=== PATIENT | female | born 1970 | race Caucasian/White ===

== ENCOUNTER 2019-02-12 05:57 | Observation (INO) ==
--- NOTE | 2019-01-25 09:39 | Anesthesiology Consultation ---
Date of Service January 25, 2019 Assessment & Plan (1) Encounter for pre-operative examination: Chart Review Chart Review: Acceptable Risk for Surgery and Patient NOT seen in Pre Admission Testing History Surgery Operation Date: 02/12/19 07:30 Proposed Procedures p C5-C6, C6-C7 Anterior Cervical Discectomy and Fusion with Iliac Crest Bone Graft - Adalberto Kim DO Height/Weight Height: 5 ft Weight: 63.503 kg Allergies Allergy/AdvReac Type Severity Reaction Status Date / Time erythromycin base Allergy Verified 01/18/19 15:56 Medications Home Medications Medication Instructions Recorded Confirmed Last Taken gabapentin 300 mg capsule 300 mg PO TID cap 12/20/18 01/18/19 Unknown lansoprazole 30 mg delayed 30 mg PO QPM 12/20/18 01/18/19 Unknown release,disintegrating tablet lorazepam 0.5 mg tablet 0.5 mg PO DAILY PRN 12/20/18 01/18/19 Unknown melatonin 3 mg tablet 3 mg PO HS PRN 12/20/18 01/18/19 Unknown meloxicam 15 mg tablet 15 mg PO QPM 12/20/18 01/18/19 Unknown sertraline 100 mg tablet 100 mg PO QPM 12/20/18 01/18/19 Unknown Past Medical History Medical History GERD (gastroesophageal reflux disease) Anxiety Benign tumor of endometrium H/O Degenerative disc disease Lupus MANAGED BY PCP Migraine Past Surgical History Surgical History History of cardiac cath 2015 (2/2 CHEST PAIN)= "ANGIOGRAPHICALLY NORMAL CORONARY ARTERIES" History of colonoscopy History of esophagogastroduodenoscopy (EGD) History of partial hysterectomy Intussusception SURGICALLY REPAIRED AN INFANT STOP BANG Total 1 Social History Smoking Status: Never smoker Do You Dip or Chew Tobacco: No Hx Alcohol Use: No Hx Substance Use: No substance use type: does not use Testing Cardiac Catheterization Date: 12/16/15 angiographically normal coronary arteries. LVEF 55%. Laboratory Results 01/24/19 WBC 7.06 H/H 15.7/46.2 PLATELETS 243
--- NOTE | 2019-02-09 15:13 | History and Physical Report ---
DATE OF ADMISSION: 02/12/2019 CHIEF COMPLAINT: Neck pain, arm pain, trapezius pain. HISTORY OF PRESENT ILLNESS: She has 2-level disc pathology cervical spine. PAST MEDICAL HISTORY: Positive for lupus. No hypertension, COPD, carcinoma. PAST SURGICAL HISTORY: Hysterectomy, heart catheterization. ALLERGIES: Negative. FAMILY HISTORY: Lupus, diabetes, heart disease. SOCIAL HISTORY: She is single. No alcohol, no tobacco. Active lifestyle. REVIEW OF SYSTEMS: Twelve-system review is negative for fevers, sweats, chills. Ear, nose and throat negative. Denies chest pain, heart palpitations. Denies asthma, wheezing, shortness of breath. She has musculoskeletal neck pain, arm pain as well. MEDICATIONS: Meloxicam, lorazepam, melatonin, lisinopril. PHYSICAL EXAMINATION: GENERAL: She is 5 feet, 145, in no terrible distress. VITAL SIGNS: Blood pressure 130/80, pulse 80, afebrile. CARDIAC: Normal S1, S2, no S3. LUNGS: Clear to auscultation. No rales, rhonchi, wheezing. ABDOMEN: Soft, nontender. 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 She has a Spurling maneuver and Lhermitte sign. No upper motor neuron pathology. Images reviewed in detail. She has 2-level cervical disc pathology, C5-C7 cervical spine. PLAN: Includes an ACDF, cervical spine, C5-C7 cervical spine with iliac crest bone graft. MTDD
[2019-02-12] MEDS ORDERED: SODIUM CHLORIDE 0.9% 1000ML IV SCH (06:00)
[2019-02-12] MEDS ORDERED: LR 15ML/HR IV SCH (06:00)
[2019-02-12] MEDS ORDERED: CEFAZOLIN 2000MG 2,000 MG/15 ML SYR IV SCH (06:00)
[2019-02-12] MEDS ORDERED: LR 60ML/HR IV SCH (06:00)
[2019-02-12] MEDS ORDERED: BUPIVACAINE/EPINEPHRINE 0.5% MPF 1:200,000 30 ML VIAL ONE (07:01)
[2019-02-12] MEDS ORDERED: THROMBIN FOR SOLN 20000 UNIT KIT ONE ×2 (07:01→07:02)
[2019-02-12] MEDS ORDERED: GELATIN SPONGE SZ 100 ONE (07:01)
[2019-02-12] MEDS ORDERED: BACITRACIN INJ 50,000 UNIT VIAL ONE (07:01)
[2019-02-12] MEDS ORDERED: fentaNYL citrate 100 MCG/2 ML VIAL ONE (07:05)
[2019-02-12] MEDS ORDERED: MIDAZOLAM HCL 1 MG/ML 2ML VIAL ONE (07:05)
--- NOTE | 2019-02-12 07:11 | History & Physical Bridge Note ---
Date of Service February 12, 2019 History & Physical Bridge Note I have examined the patient, reviewed the History & Physical and in the interval since the performance of the History & Physical I have noted the following changes of clinical significance: no changes noted
[2019-02-12] MEDS ORDERED: ATROPINE SULFATE 0.1 MG/ML 10ML SYR IV PRN (07:14)
[2019-02-12] MEDS ORDERED: ONDANSETRON INJ 2 MG/ML 2 ML VIAL IV PRN ×2 (07:14→11:38)
[2019-02-12] MEDS ORDERED: ePHEDrine sulfate 50 MG/ML AMP IV PRN (07:14)
[2019-02-12] MEDS ORDERED: SCOPOLAMINE 1.5 MG TDSY ONE (07:15)
[2019-02-12] MEDS ORDERED: ROCURONIUM BROMIDE 10 MG/ML 5 ML VIAL ONE (07:55)
[2019-02-12] MEDS ORDERED: LARYING-O-JET KIT (LTA) ONE (07:55)
[2019-02-12] MEDS ORDERED: LIDOCAINE HCL 2% 2 ML VIAL/AMP(20MG/ML) INFIL ONE (07:55)
[2019-02-12] MEDS ORDERED: ONDANSETRON INJ 2 MG/ML 2 ML VIAL ONE (07:55)
[2019-02-12] MEDS ORDERED: NEOSTIGMINE METHYLSULFATE 5 MG/5 ML SYR ONE (07:55)
[2019-02-12] MEDS ORDERED: GLYCOPYRROLATE 0.2 MG/ML VIAL ONE (07:55)
[2019-02-12] MEDS ORDERED: PROPOFOL IV EMULSION 10 MG/ML 20 ML VIAL IV ONE (07:55)
[2019-02-12] MEDS ORDERED: DEXAMETHASONE SOD INJ 4 MG/ML VIAL ONE (07:55)
[2019-02-12] MEDS ORDERED: HYDROmorphone INJ 2 MG/ML SYR/VIAL ONE (07:56)
--- NOTE | 2019-02-12 09:25 | Fluoroscopy Report ---
FL spine 1V any level CLINICAL HISTORY: 48 years-old Female presenting with C5-C7 ACDF. TECHNIQUE: 1 fluoroscopic image(s) recorded as part of an intraoperative procedure. COMPARISON: None. FINDINGS/IMPRESSION: Anterior cervical discectomy and fusion in the cervical spine poorly evaluated due to overpenetration of the upper cervical region and underpenetration of the lower cervical region. Grossly normal anato viry alignment. Please see surgical report for further details. Fluoroscopy dosage (mGy): 0.52. Fluoroscopy time: 2.8 seconds. Number or time of high level fluoroscopy (HLF), digital spot, or digital subtraction images: 0. Electronically signed by: Germain Pathak M.D. 02/12/2019 9:24 AM
--- NOTE | 2019-02-12 09:37 | Post Operative Brief Note ---
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
[2019-02-12] MEDS: fentaNYL citrate 100 MCG/2 ML VIAL IV PRN ×4 (10:01→10:30)
[2019-02-12] MEDS: HYDROmorphone INJ 1 MG/ML SYRINGE IV PRN ×4 (10:36→11:01)
--- NOTE | 2019-02-12 11:00 | Anesthesiology Progress Note ---
Date of Service February 12, 2019 Anesthesia Post Procedure Vital Signs Vital Signs: Temp Pulse Pulse Resp BP Pulse Ox 02/12/19 10:45 106 H 15 105/73 96 02/12/19 10:35 94 H 14 109/71 97 02/12/19 10:25 99 H 15 101/86 97 02/12/19 10:15 101 H 14 130/84 97 02/12/19 10:05 100 H 16 127/78 97 02/12/19 09:55 95 H 15 132/87 97 02/12/19 09:45 100 H 15 127/87 100 02/12/19 09:36 36.0 C L 103 H 17 140/91 100 02/12/19 06:29 36.7 C 103 H 18 127/86 97 Pain Intensity Posterior Neck: Pain Intensity: 5 Transfer of Care Handoff Completed per policy Notes Mental Status: alert / awake / arousable and participated in evaluation Patient Amnestic to Procedure: Yes Nausea / Vomiting: adequately controlled Pain: adequately controlled Airway Patency, RR, SpO2: stable & adequate BP & HR: stable & adequate Hydration State: stable & adequate Anesthetic Complications: no major complications apparent and Pt Satisfied with anesthetic care
[2019-02-12] MEDS ORDERED: ACETAMINOPHEN 1,000 MG/100 ML VIAL IV PRN (11:38)
[2019-02-12] MEDS ORDERED: NALOXONE HCL 0.4 MG/1 ML VIAL/CARP IV PRN (11:38)
[2019-02-12] MEDS ORDERED: RACEPINEPHRINE 2.25% NEBU SOLN 0.5 ML VIAL INH PRN (11:38)
[2019-02-12] MEDS ORDERED: DEXAMETHASONE SOD PHOSPHATE 8 MG in SYRINGE 0 ML IV PRN (11:38)
[2019-02-12] MEDS: LORazepam 0.5 MG/1 ML VIAL IV PRN ×2 (12:35→21:05)
--- NOTE | 2019-02-12 13:04 | Operative Report ---
DATE OF OPERATION: 02/12/2019 PREOPERATIVE DIAGNOSES: Spinal cord compression, spondylosis of cervical spine, C5-C6 and C6-C7 cervical spine. POSTOPERATIVE DIAGNOSES: Spinal cord compression, spondylosis of cervical spine, C5-C6 and C6-C7 cervical spine. PROCEDURE: Anterior cervical discectomy and fusion C5-C6 and C6-C7, iliac crest bone graft, anterior plating. PROCEDURE DESCRIPTION: The patient was taken to the operating room, general intubated anesthetic provided to the patient. Prior to the patient bringing back to the operating room, we had carefully marked in the holding area. The patient got back. After general intubated anesthetic and proper positioning, we took a formal timeout. She was prepped and draped sterile. We made a transverse skin incision right over the C6 vertebral body, dissecting the soft tissue, same plane classic approach. We were able to do complete discectomies at C5-C6 and C6-C7. I was back and through the posterior longitudinal ligament. I was lateral to the uncovertebral joints bilaterally. I was able to get back and take out all disc material and osteophytes as well. Complete foraminotomies were also provided. I then went to the left iliac crest, made a skin incision, fascial incision, harvested a structural autograft from the left iliac crest. These grafts were approximately 7 mm in height, tapered to 6 and approximately 14 mm in length and approximately 12 mm across. This was placed into the vacated discectomy sites up at C5-C6 and C6-C7. We also used some demineralized bone matrix called DBM. I used that to fill in the little voids up in the cervical spine area. An anterior plate was placed over the construct, 32 mm in length, transfixed with 6 cortical screws. We then irrigated, crosstable x-rays were satisfactory. We irrigated and closed in layers over a Vane drain. The left iliac crest was closed with 1 Vicryl 2-0 and nylon suture. Sterile dressings applied. Sponge and needle count correct. Implants used were by the Sponge. I attest to the surgery, every aspect of our surgical clinical reviewer help was required. There was definitely structural instability after the discectomy procedure. I attest that the iliac crest bone graft or a bone graft substitute was absolutely needed. An anterior plate was paramount to help with overall fusion and good outcomes. Implants used by the Sponge material were iliac crest autograft and the mineral called demineralized bone matrix. There were no complications. ESTIMATED BLOOD LOSS: 15 mL. I attest to the content of the Intraoperative Record and any orders documented therein. Any exception s are noted below.
[2019-02-12] MEDS: HYDROmorphone INJ 0.5 MG/0.5 ML SYR IV PRN ×2 (14:42→20:37)
[2019-02-12] MEDS: SODIUM CHLORIDE 0.9% 1000ML 1,000 ML IV SCH (14:49)
[2019-02-12] MEDS: GABAPENTIN 300 MG CAP PO SCH ×2 (14:49→20:36)
[2019-02-12] MEDS: CEFAZOLIN 2000MG 2,000 MG/15 ML SYR IV SCH (16:12)
[2019-02-12] MEDS: OXYCODONE HCL IR 5 MG TAB (IMMEDIATE RELEASE) PO PRN (17:08)
[2019-02-12] MEDS ORDERED: LANSOPRAZOLE 30 MG SOLTAB PO SCH (21:00)
[2019-02-12] MEDS ORDERED: SERTRALINE HCL 100 MG TABLET PO SCH (21:00)
[2019-02-13] MEDS: OXYCODONE HCL IR 5 MG TAB (IMMEDIATE RELEASE) PO PRN ×3 (00:37→10:36)
[2019-02-13] MEDS: CEFAZOLIN 2000MG 2,000 MG/15 ML SYR IV SCH ×2 (00:37→08:49)
[2019-02-13] MEDS: SODIUM CHLORIDE 0.9% 1000ML 1,000 ML IV SCH (02:38)
[2019-02-13] MEDS: HYDROmorphone INJ 0.5 MG/0.5 ML SYR IV PRN (02:38)
[2019-02-13] MEDS: LORazepam 0.5 MG/1 ML VIAL IV PRN (05:01)
--- NOTE | 2019-02-13 08:44 | Anesthesiology Progress Note ---
Date of Service February 13, 2019 Anesthesia Post Procedure Vital Signs Vital Signs: Temp Pulse Pulse Resp BP Pulse Ox 02/13/19 07:16 103 H 14 96 02/13/19 06:29 36.9 C 107 H 16 111/74 93 02/13/19 04:30 36.9 C 100 H 16 111/68 92 02/13/19 04:03 106 H 16 92 02/13/19 02:30 36.8 C 107 H 16 110/72 94 02/13/19 00:33 37 C 107 H 18 106/71 93 02/12/19 23:47 112 H 18 97 02/12/19 22:29 36.9 C 98 H 16 118/76 98 02/12/19 20:30 36.7 C 103 H 18 119/79 96 02/12/19 20:09 109 H 16 97 02/12/19 18:28 102 H 16 109/64 95 02/12/19 16:20 36.8 C 102 H 16 113/77 95 02/12/19 15:22 104 H 16 94 02/12/19 14:32 36.9 C 104 H 16 118/82 96 02/12/19 13:27 113 H 18 106/73 96 02/12/19 12:32 115 H 18 106/70 96 02/12/19 12:04 36.5 C 102 H 18 110/74 97 02/12/19 11:55 106 H 18 98 02/12/19 11:30 36.8 C 104 H 16 108/76 97 02/12/19 11:15 36.4 C L 104 H 16 114/74 97 02/12/19 11:05 36.0 C L 105 H 18 103/89 96 02/12/19 10:55 106 H 16 111/71 96 02/12/19 10:45 106 H 15 105/73 96 02/12/19 10:35 94 H 14 109/71 97 02/12/19 10:25 99 H 15 101/86 97 02/12/19 10:15 101 H 14 130/84 97 02/12/19 10:05 100 H 16 127/78 97 02/12/19 09:55 95 H 15 132/87 97 02/12/19 09:45 100 H 15 127/87 100 02/12/19 09:36 36.0 C L 103 H 17 140/91 100 Pain Intensity Posterior Neck: Pain Intensity: 4 Left Hip: Pain Intensity: 8 (With movement) Notes Mental Status: alert / awake / arousable Patient Amnestic to Procedure: Yes Nausea / Vomiting: adequately controlled Pain: adequately controlled Airway Patency, RR, SpO2: stable & adequate BP & HR: stable & adequate Hydration State: stable & adequate Anesthetic Complications: no major complications apparent and Pt Satisfied with anesthetic care
[2019-02-13] MEDS: GABAPENTIN 300 MG CAP PO SCH (11:18)
--- NOTE | 2019-02-14 10:17 | Discharge Summary ---
HOSPITAL COURSE: She is alert and oriented, admitted to observation status on 02/12/2019, discharged home on 02/13/2019 in improved stable condition with no issues, was uneventful. Dressings were changed. Instructions, precautions provided. Numbers provided. Followup appointment, collar, and medication all provided on her chart. See her back in the office in approximately 10 days.
== END 2019-02-13 11:54 | disposition home or self-care (01) ==
LOC: ASU 05:57 → 3E 05:57